=== PATIENT | male | born 1975 | race Caucasian/White ===

== ENCOUNTER → 2021-06-19 17:01 | Outpatient (CLI) | payer OTHER, SELFPAY ==
[2021-06-19 17:07] LABS: Bacteria 0 SEEN /hpf (None Seen); Red Blood Cells-Urine 0 SEEN /hpf (0-5); Squamous Epithelial Cells - UA 0 SEEN /hpf (0-5)
--- NOTE | 2021-06-19 17:07 | RAD_ITS ---
STUDY: X-RAY - ABDOMEN/PELVIS REASON FOR EXAM: Male, 45 years old. ABD PAIN TECHNIQUE: 3 AP views COMPARISON: None. FINDINGS: Normal visualized lung bases. There is a moderate amount of colonic fecal material. There is no demonstrated free abdominal air. The visualized liver, spleen and kidneys are grossly normal in size and morphology. Normal soft tissue structures. Normal visualized osseous structures. RAD/Abd Inc Decub and/or Erect IMPRESSION: No acute findings, moderate retained stool Electronically Signed: Darien New MD at 17:53 EST , Service support ,
[2021-06-19 17:45] LABS: Absolute Lymphocyte Count 4.43 X10^3/uL (0.83-4.51); Absolute Neutrophil Count 7.1 X10^3/uL (2.0-7.7); Basophil# 0.09 X10^3/uL; Basophil% 0.7 % (0-1); Eosinophil# 0.35 X10^3/uL; Eosinophils% 2.7 % (0-5); Hematocrit 40.1 % (40-54); Hemoglobin 14.2 g/dL (13.0-16.5); Lymphocyte # 4.43 X10^3/ul (0.83-4.51); Lymphocyte % 33.9 % (19-41); Mean Corp Hgb Conc 35.4 g/dL (32-36); Mean Corpuscular Hgb 31.8 pg (27.0-32.0); Mean Corpuscular Volume 89.9 fL (80-94); Mean Platelet Vol. 10.8 fl (6.2-12.0); Monocyte# 0.96 X10^3/uL; Monocyte% 7.3 % (0-10); NRBC Flagged by Analyzer 0 % (0-5); Neutrophil % 54.3 % (47-70); Platelet Count 288 K/mm3 (150-450); RBC Distribution Width CV 12.1 % (11.6-14.6); Red Blood Count 4.46 M/mm3 (4.6-6.2); White Blood Count 13.1 K/mm3 (4.4-11.0)
[2021-06-19 17:47] LABS: Color, Urine Yellow (Yellow); Glucose, Dipstick Normal (Normal); Ketone-Dipstick 5 mg/dl (Negative); Leukocyte Esterase-Dipstick 25 /ul (Negative); Nitrite-Dipstick Negative (Negative); Occult Blood-Urine 10 /ul (Negative); Protein-Dipstick 30 mg/dl (Negative); Urine Bilirubin Dipstick Negative (Negative); Urine Clarity Clear (Clear); Urine Urobilinogen Normal (Normal)
[2021-06-19 18:14] LABS: ALB/GLOB Ratio 1.1 RATIO (0.9-2.4); AST(SGOT) 18 U/L (15-37); Alanine Aminotransfer ALT/SGPT 43 U/L (16-61); Alkaline Phosphatase 106 U/L (45-117); Anion Gap 7 (5-15); BUN 20 mg/dL (7-18); BUN/Creat Ratio 22.7 RATIO (10-20); Calcium,Total 9.2 mg/dL (8.5-10.1); Chloride 103 mmol/L (98-107); Creatinine, Serum 0.88 mg/dL (0.70-1.30); EST Glomerular Filtration Rate 100 mL/min (>60); Est Glom Filt Rate - Afr Amer 121 mL/min (>60); Globulin 3.6 g/dL (2.2-4.2); Glucose 96 mg/dL (74-106); Potassium 4.3 mmol/L (3.5-5.1); Protein, Total 7.6 g/dL (6.4-8.2); Sodium Level 137 mmol/L (136-145)
[2021-06-19 18:19] LABS: Mucous, Urine 2+ /hpf (<or=2+)
[2021-06-19 18:20] LABS: White Blood Cells 0-5 SEEN /hpf (0-5)
== END ==
PROVIDERS: PCP Family Medicine; Referring Provider Family Medicine; Visit Provider Family Medicine
DX: R10.9 Unspecified abdominal pain (principal)
CPT/HCPCS: 36415; 74019; 80053; 81001; 85025

== ENCOUNTER → 2023-08-07 | Outpatient (CLI) | payer OTHER, SELFPAY ==
--- OUTSIDE RECORDS SUMMARY | 2023-08-07 08:59 | XMS RPT_ITS | CCD ---
Author Name Unknown Address [address] [place] [address] Organization [facility] Results Test Name Value Interpretation Reference Range Facil ity Progress note 05-19-2021 Note Date & Type Note Facility 05-19-2021 Note HNO ID: [id number] Author: Quincy Arriaga MD Service: ? Author Type: Physician Type: Progress Notes Filed: 05/19/2021 4:14 PM Note Text: Chief Complaint Patient presents with: Pain: x 1 week, intermittent, worse when sitting for a long time; pain is under L breast and radiates to L flank HPI Deann Tanner is a 45 year old male who presents here today for Above Complaints. Patient states that about a week ago he developed gradual onset pain in his LUQ abdomen. Described as intermittent ache, up to 6/10, radiating to his left mid back. Exacerbated with sitting, leaning toward his left, or hard cough.Treating with ibuprofen which helps temporarily. Gradually worsening. Admits to getting over a cold about 2 weeks ago with cough. Denies fall/injury, rash, erythema, bruising, swelling, nausea, vomiting, diarrhea, constipation, hematochezia, melena, fever/chills. Past medical history, appointments, medications, allergies reviewed. Previous Medical History PAST MEDICAL HISTORY Diagnosis Date - Alcohol abuse, in remission 02/14/2016 sober since 02/14/2016 - Depression - Hyperlipidemia - Hypertension - Prediabetes - Tobacco use disorder Previous Surgical History PAST SURGICAL HISTORY Procedure Laterality Date - EXTENSIVE ANKLE/HEEL SURGERY 2009 - TONSILLECTOMY AND ADENOIDECTOMY HX Family History FAMILY HISTORY Problem Relation Age of Onset - Ischemic Heart Disease Mother - Hypertension Mother - Seizures Paternal Grandfather - Emphysema Father - other (lupus) Sister - No Known Problems Maternal Grandmother - No Known Problems Maternal Grandfather - No Known Problems Paternal Grandmother - Hypertension Sister Patient Allergies ALLERGIES No Known Allergies Current Medications Current Outpatient Medications on File Prior to Visit Medication Sig - simvastatin (ZOCOR) 20 mg tablet Take 1 tablet by mouth once daily. - metoprolol succinate ER (TOPROL XL) 50 mg 24 hr tablet Take 1 tablet by mouth once daily. - lisinopril (ZESTRIL, PRINIVIL) 20 mg tablet Take 1 tablet by mouth once daily. No current facility-administered medications on file prior to visit. Social History Social History Tobacco Use - Smoking status: Current Every Day Smoker Packs/day: 0.50 Years: 25.00 Pack years: 12.50 - Smokeless tobacco: Current User - Tobacco comment: chewing 2 cans per week Vaping Use - Vaping Use: Former Substance Use Topics - Alcohol use: Not Currently Alcohol/week: 5.0 standard drinks Types: 6 Cans of beer per week Comment: three years sober - Drug use: Not Currently Review of Symptoms REVIEW OF SYSTEMS See HPI EXAM: BP 128/100 Pulse 88 Temp 36.9 ?C (98.5 ?F) Wt 94.8 kg (209 lb) SpO2 96% BMI 33.73 kg/m? General Appearance: Well appearing, alert, in no acute distress, well-hydrated, well nourished.. Skin: Skin color, texture, turgor normal, no suspicious rashes or lesions. Back:no pain to palpation of vertebrae, good flexion and extension, good range of motion, no muscle tenderness Lungs: Lungs clear to auscultation. No wheezing, rhonchi, rales.. Heart: RRR without murmur, gallop, or rubs. No ectopy. Abdomen: Normal abdominal exam, Abdomen soft, non-tender. Bowel sounds normal. No masses, organomegaly. Health Maintenance List BP CONTROLLED (<130/80) Never done INFLUENZA(1) Never done COVID-19 VACCINE(1) due on 02/13/2022 ANNUAL PCP TEAM CHRONIC DISEASE VISIT due on 02/13/2022 DEPRESSION SCREENING due on 02/13/2022 LIPID SCREEN due on 08/08/2025 DTAP,TDAP,TD(2 - Td or Tdap) due on 08/15/2030 HEPATITIS C SCREENING Completed HIV SCREENING Completed ONE PNEUMOVAX PRIOR TO AGE 65 Addressed MENINGOCOCCAL CONJUGATE Aged Out ASSESSMENT/PLAN: 1. LUQ abdominal pain - ICD9: 789.02, ICD10: R10.12 (primary diagnosis) Suspect this is radicular pain from his back. Non tender in his abdomen and back today on exam. Discussed ice/heat, NSAIDs, home exercises for pain. Red flags for re-assessment reviewed with patient in detail. 2. Acute left-sided thoracic back pain - ICD9: 724.1, ICD10: M54.6 - Ice for localized tenderness - Warm moist heat for 20 min three times a day - NSAIDS- see orders - Patient given instructions use of medications as ordered, intermittent rest, back care exercise program, weight loss, improved posture, proper lifting techniques and intermittent use of heat Quincy Arriaga MD [facility] Progress note 02-13-2021 Note Date & Type Note Facility 02-13-2021 Note HNO ID: [id number] Author: Quincy Arriaga MD Service: ? Author Type: Physician Type: Progress Notes Filed: 02/14/2021 9:23 AM Note Text: Chief Complaint Patient presents with: 6 Month Exam HPI Deann Tanner is a 45 year old male who presents here today for Hypertension. At present Patient is experiencing symptoms of High blood pressure including anxiousness and mild pressure in the frontal region. Complains of ear pain, which patient states represents high blood pressure to him Patient states that blood pressure is pretty good, not recording it at home presently. He has never recorded blood pressure readings at home Patient says he can feel when blood pressure is high- feels anxiety, and is sometimes hard to describe. Currently experiencing no headache. Patient complains of blurry vision-eyes are Bad needs new glasses. Has not had COVID -19 vaccine, and refuses. Risks and benefits discussed. Patient states he has taken medicatoins with no side effects. Patient states he is NOT diabetic. Patient states Dr. Arriaga considered him pre-diabetic. Denies excess thirst, hunger, or urination. Diet: Patient states that he eats out a lot, approximates 5x per week while working. 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 Last week he was active cutting trees and hauling away. This week not a lot of physical work. No feelings of anxiety and depression. No thoughts of harming himself or others. Feels that anxiety and depression are well managed without medication Past medical history, appointments, medications, allergies reviewed. Previous Medical History PAST MEDICAL HISTORY Diagnosis Date - Alcohol abuse, in remission 02/14/2016 sober since 02/14/2016 - Depression - Hyperlipidemia - Hypertension - Prediabetes - Tobacco use disorder Previous Surgical History PAST SURGICAL HISTORY Procedure Laterality Date - EXTENSIVE ANKLE/HEEL SURGERY 2009 - TONSILLECTOMY AND ADENOIDECTOMY HX Family History FAMILY HISTORY Problem Relation Age of Onset - Ischemic Heart Disease Mother - Hypertension Mother - Seizures Paternal Grandfather - Emphysema Father - other (lupus) Sister - No Known Problems Maternal Grandmother - No Known Problems Maternal Grandfather - No Known Problems Paternal Grandmother - Hypertension Sister Patient Allergies ALLERGIES No Known Allergies Current Medications Current Outpatient Medications on File Prior to Visit Medication Sig - simvastatin (ZOCOR) 20 mg tablet Take 1 tablet by mouth once daily. - metoprolol succinate ER (TOPROL XL) 50 mg 24 hr tablet Take 1 tablet by mouth once daily. - lisinopril (ZESTRIL, PRINIVIL) 20 mg tablet Take 1 tablet by mouth once daily. No current facility-administered medications on file prior to visit. Social History Social History Tobacco Use - Smoking status: Current Every Day Smoker Packs/day: 0.50 Years: 25.00 Pack years: 12.50 - Smokeless tobacco: Current User - Tobacco comment: chewing 2 cans per week Vaping Use - Vaping Use: Former Substance Use Topics - Alcohol use: Not Currently Alcohol/week: 5.0 standard drinks Types: 6 Cans of beer per week Comment: three years sober - Drug use: Not Currently Smoking currenlty 4 or 5 cigarettes per day, previously a pack a day. No alcohol use, 5 years sober today. No illicit or recreational drugs 5 years sober today Review of Symptoms REVIEW OF SYSTEMS PAIN ASSESSMENT: Patient states ankle knee and back pain, attributes to old age, arthritits. Rib pain approximately 1x month. Aggrevated from sitting still and not moving enough GENERAL: No weight loss, malaise or fevers HEENT: Negative for frequent or significant headaches, No changes in hearing or vision-SEE HPI , no nose bleeds or other nasal problems. Patient experiences right ear pain, pain fullness once per week. NECK: Negative for lumps, goiter, pain and significant neck swelling RESPIRATORY: Negative for cough, hemoptysis, wheezing, dyspnea or shortness of breath CARDIOVASCULAR: Negative for chest pain, leg swelling, palpitations GI: No nausea, vomiting, or diarrhea. No heartburn or reflux symptoms : No history of dysuria, frequency or incontinence MUSCULOSKELETAL: Joint pain in both ankles and knees noticeable after a long day, denies back pain or muscle pain that is localized to mid back. SKIN: Negative for lesions, rash, and itching. Facial mole that turned bad a few days ago from agitation, started bleeding, washed and stopped bleeding on its on. PSYCH: Negative for sleep disturbance, mood disorder and recent psychosocial stressors HEMATOLOGY/LYMPHOLOGY: Negative for prolonged bleeding, bruising easily or swollen nodes ENDOCRINE: Negative for cold or heat intolerance, polyuria, and goiter. Patient experiences polyphagia approximately 2-3 times per week, depends on whats for dinner. (more content not included)... [facility] Progress note 08-31-2020 Note Date & Type Note Facility 08-31-2020 Note HNO ID: [id number] Author: Yulisa ([facility]) [employer] Service: ? Author Type: Nurse Practitioner Type: Progress Notes Filed: 08/31/2020 4:09 PM Note Text: Telemedicine Evaluation for COVID-19 Infection HIPAA secured video was used for evaluation of this patient. Location of patient: [facility] Deann Tanner is a 45 year old male who presents with 3 days of symptoms that are stable. Reports has had two COVID-19 tests. PCR on first day of symptoms which was negative. One today rapid which was negative. Symptoms include: Fever (?100.4F): No or Chills: Yes Cough: No Shortness of breath: No or Difficulty breathing: No Fatigue: Yes Muscle aches: Ye Headache: Yes New loss of smell or taste: No Sore throat: Yes Nasal congestion: Yes or Rhinorrhea: Yes Nausea: Yes or Vomiting: No Diarrhea: No OTC meds/remedies that patient has tried: NSAIDs. High risk category assessment Hypertension Exposures: Sick contacts? No Family or close contacts with confirmed/probable COVID-19 in last 14 days? No He reports that he has been smoking. He has a 12.50 pack-year smoking history. He uses smokeless tobacco. OBJECTIVE VIDEO EXAM (if available) GENERAL: Well appearing, alert, in no acute distress HEENT: No conjunctival injection, pupils equal PULMONARY: No coughing noted and No wheezing noted. Able to speak in full sentences without diffiuclty ASSESSMENT/PLAN 1. Encounter by telehealth for suspected COVID-19 - ICD9: V01.79, ICD10: Z20.822 (primary diagnosis) - Meets symptom-based criteria for testing and is high risk. - Patient scheduled for testing at the time of visit. - Instructed to isolate pending test results - Discussed symptom monitoring and supportive care - Red flag symptoms requiring follow up discussed - 2019 CORONAVIRUS 2. Flu-like symptoms - ICD9: 780.99, ICD10: R68.89 - offered flu testing for [facility], declined at this time Yulisa Schmid, IT SUPPORT TECHNICIAN.CHILD CAREGIVER This patient encounter involved the screening or treatment of novel coronavirus infection (COVID-19). Prescription instructions reviewed with patient as applicable. Patient advised if symptoms do not improve or if symptoms worsen sooner, to contact their primary care physician. Potential red flag symptoms discussed with the patient. Reviewed appropriate action plan to take if red flag symptoms occur. Patient agreeable to treatment plan. ' [facility] Progress note 08-29-2020 Note Date & Type Note Facility 08-29-2020 Note HNO ID: [id number] Author: Carlos Vazquez Service: ? Author Type: Nurse Practitioner Type: Progress Notes Filed: 09/01/2020 9:23 AM Note Text: Telemedicine Visit - Telephone visit Patient seen on telephone platform. Location of patient: [place] History of Present Illness Deann Tanner is a 45 year old year old male who presents for the past 1 day with symptoms that are:gradually worsening. Symptoms include: Positive for Fever, Chills/Sweats, Headache and Sore throat, Negative for Cough, SOB, METZ, Nasal congestion and Diarrhea Oral intake: as usual Tobacco use: yes Second hand smoke exposure: No Recent exposure to strep:No Sick contacts: none known Recent travel: no OTC meds/remedies that patient has tried: tylenol. PAST MEDICAL HISTORY Diagnosis Date - Depression - Hyperlipidemia - Hypertension PAST SURGICAL HISTORY Procedure Laterality Date - EXTENSIVE ANKLE/HEEL SURGERY 2009 - TONSILLECTOMY AND ADENOIDECTOMY HX FAMILY HISTORY Problem Relation Age of Onset - Ischemic Heart Disease Mother - Hypertension Mother - Seizures Paternal Grandfather - Emphysema Father - other (lupus) Sister - No Known Problems Maternal Grandmother - No Known Problems Maternal Grandfather - No Known Problems Paternal Grandmother - Hypertension Sister Social History Tobacco Use - Smoking status: Current Every Day Smoker Packs/day: 0.50 Years: 25.00 Pack years: 12.50 - Smokeless tobacco: Current User Substance Use Topics - Alcohol use: Not Currently Alcohol/week: 5.0 standard drinks Types: 6 Cans of beer per week Comment: three years sober - Drug use: Not Currently Current Outpatient Medications Medication Sig - simvastatin (ZOCOR) 20 mg tablet Take 1 tablet by mouth once daily. - metoprolol succinate ER (TOPROL XL) 50 mg 24 hr tablet Take 1 tablet by mouth once daily. - lisinopril (ZESTRIL, PRINIVIL) 20 mg tablet Take 1 tablet by mouth once daily. No current facility-administered medications for this visit. ALLERGIES No Known Allergies Video Exam : appears in no distress on phone, no respiratory distress noted during conversation. Centor Criteria - Age (2-14=+1, 15-44=0, >=45 -1): 0 - Tonsillar exudates: 0 unknown, phone exam. - Tender anterior cervical adenopathy: +1 - Fever by history (>38 or 100.4): +1 - Absence of cough: +1 0 points- probability of strep is 1-2.5% 1 point- probability of strep is 5-10% 2 points- probability of strep is 11-17% 3 points- probability of strep is 28-35% 4 points- probability of strep is 51-53% ASSESSMENT/PLAN: 1. Suspected COVID-19 virus infection - ICD9: V01.79, ICD10: Z20.822 (primary diagnosis) Discussed quarantine, social distancing otc medications discussed Push fluids -If you experience chest pain/shortness of breath go to ER - 2019 CORONAVIRUS 2. Sore throat - ICD9: 462, ICD10: J02.9 Strep negative Viral otc medication discussed. - STREP A MOLECULAR (POC) a -Tylenol (generic acetaminophen) 500 mg-2 tabs every 8 hrs. as needed for fever and aches -Sudafed (generic is fine), behind the counter, 2x30 mg tabs twice daily as needed for congestion -Mucinex (generic is fine) 1200 mg twice daily to help with cough and to thin out mucus -http://[email or web address].org/patient-re [email or web address]/. This link shares information about when antibiotics may help and when they may not. - Red flags discussed for need for in person care - All questions answered Carlos Vazquez APRN.CHILD CAREGIVER 20 minutes spent with patient discussing health concerns and plan of care. If you let us know who your primary care provider is, we will send them a notification of today?s visit through our electronic medical records system. Since not all providers have access to our notifications, we strongly encourage you to share the following record of today?s visit with your primary care provider at your next visit. This will help in providing you the best care. [facility] Progress note 08-15-2020 Note Date & Type Note Facility 08-15-2020 Note HNO ID: [id number] Author: Quincy Ramos) Bart Service: ? Author Type: Physician Type: Progress Notes Filed: 08/16/2020 9:32 AM Note Text: Chief Complaint Patient presents with: 6 Month Exam HPI Deann Tanner is a 45 year old male who presents here today for 6 month follow up. Without complaints today. Needs refills on medications. HTN: Mr. Tanner indicates that he is feeling well and denies any symptoms referable to elevated blood pressure. Specifically denies headache, chest pain, palpitations, dyspnea and peripheral edema. Patient denies any side effects of his medication(s) and is compliant with their regimen. He does not check BP's generally. Deann gets minimal exercise. He watches his diet for sodium, low fat and low cholesterol some of the time. Last 3 Encounter BP Readings: Date: BP: 08/15/2020 134/78 02/10/2020 116/73 08/14/2019 116/62 Depression in remission without medications. Denies feeling down/depressed/hopeless, loss of interest or pleasure, SI/HI. Due for hepatitis C and HIV screening. Past medical history, appointments, medications, allergies reviewed. Previous Medical History PAST MEDICAL HISTORY Diagnosis Date - Depression - Hyperlipidemia - Hypertension Previous Surgical History PAST SURGICAL HISTORY Procedure Laterality Date - EXTENSIVE ANKLE/HEEL SURGERY 2009 - TONSILLECTOMY AND ADENOIDECTOMY HX Family History FAMILY HISTORY Problem Relation Age of Onset - Ischemic Heart Disease Mother - Hypertension Mother - Seizures Paternal Grandfather - Emphysema Father - other (lupus) Sister - No Known Problems Maternal Grandmother - No Known Problems Maternal Grandfather - No Known Problems Paternal Grandmother - Hypertension Sister Patient Allergies ALLERGIES No Known Allergies Current Medications Current Outpatient Medications on File Prior to Visit Medication Sig - simvastatin (ZOCOR) 20 mg tablet Take 1 tablet by mouth once daily. - metoprolol succinate ER (TOPROL XL) 50 mg 24 hr tablet Take 1 tablet by mouth once daily. - lisinopril (ZESTRIL, PRINIVIL) 20 mg tablet Take 1 tablet by mouth once daily. No current facility-administered medications on file prior to visit. Social History Social History Tobacco Use - Smoking status: Current Every Day Smoker Packs/day: 0.50 Years: 25.00 Pack years: 12.50 - Smokeless tobacco: Current User Substance Use Topics - Alcohol use: Not Currently Alcohol/week: 5.0 standard drinks Types: 6 Cans of beer per week Comment: three years sober - Drug use: Not Currently Review of Symptoms REVIEW OF SYSTEMS GENERAL: No weight loss, malaise or fevers RESPIRATORY: Negative for cough, hemoptysis, wheezing, COPD, dyspnea or shortness of breath CARDIOVASCULAR: Negative for chest pain, leg swelling, hypertension, CHF or palpitations GI: No nausea, vomiting, or diarrhea SKIN: Negative for lesions, rash, and itching EXAM: BP 134/78 Pulse 92 Resp 16 Wt 94.3 kg (208 lb) SpO2 96% BMI 33.57 kg/m? General Appearance: Well appearing, alert, in no acute distress, well-hydrated, well nourished.. Skin: Skin color, texture, turgor normal, no suspicious rashes or lesions. Lungs: Lungs clear to auscultation. No wheezing, rhonchi, rales.. Heart: RRR without murmur, gallop, or rubs. No ectopy. Abdomen: Normal abdominal exam, Abdomen soft, non-tender. Bowel sounds normal. No masses, organomegaly. Extremities: No deformities, edema, skin discoloration, clubbing or cyanosis. Good capillary refill. . Health Maintenance List HEPATITIS C SCREENING due on 1995 HIV SCREENING due on 1995 DTAP,TDAP,TD(1 - Tdap) due on 1996 INFLUENZA(1) due on 01/11/2021 ANNUAL PCP TEAM CHRONIC DISEASE VISIT due on 02/09/2021 BP CONTROLLED (<130/80) due on 02/09/2021 LIPID SCREEN due on 08/08/2025 ONE PNEUMOVAX PRIOR TO AGE 65 Completed MENINGOCOCCAL CONJUGATE Completed Data reviewed Component Latest Ref Rng AND Units 08/08/2020 Glucose 74 - 99 mg/dL 110 (H) BUN 9 - 24 mg/dL 23 Creatinine 0.73 - 1.22 mg/dL 0.94 Sodium 136 - 144 mmol/L 142 Potassium 3.7 - 5.1 mmol/L 4.5 Chloride 97 - 105 mmol/L 103 CO2 22 - 30 mmol/L 27 Anion Gap 9 - 18 mmol/L 12 Calcium 8.5 - 10.2 mg/dL 9.9 eGFR- >60 eGFR-All Other Races . >60 Cholesterol, Total <200 mg/dL 188 Triglyceride <150 mg/dL 82 HDL Cholesterol >39 mg/dL 51 LDL Cholesterol <100 mg/dL 121 (H) Non HDL Cholesterol <130 mg/dL 137 (H) Fasting Time hrs 12 VLDL Cholesterol <30 mg/dL 16 TC:HDL Ratio <5.10 3.69 LDL:HDL Ratio <2.54 2.37 ASSESSMENT/PLAN: 1. Hypertension - ICD9: 401.9, ICD10: I10 (primary diagnosis) - good control - Continue current medication(s) - Encouraged dietary sodium restriction/DASH diet - Recommended regular aerobic exercise. - Reviewed risks of HTN and principles of treatment - Goal of BP <140/90 - METOPROLOL SUCCINATE ER 50 MG TABLET,EX (more content not included)... [facility] Summary Purpose Family History No Family History Records FoundNo Family History Records Found Advance Directives No Advanced Directives Records FoundNo Advanced Directives Records Found Additional Source Comments (unrecognized sect ion and content) No Status Records FoundNo Status Records Found INFORMATION SOURCE (unrecogn ized section and content) DATE CREATED AUTHOR AUTHOR'S ANCA ATION 08/11/2021 [facility] FOR RECORDS PERTAINING TO PATIENTS WHO ARE OR HAVE BEEN ENROLLED IN A CHEMICAL DEPENDENCY/SUBSTANCEABUSE PROGRAM, SOME INFORMATION MAY BE OMITTED. This clinical summary was aggregated from multiple sources. Caution should be exercised in using it in the provision of clinical care. This summary normalizes information from multiple sources, and as a consequence, information in this document may materially change the coding, format and clinical context of patient data. In addition, data may be omitted in some cases. CLINICAL DECISIONS SHOULD BE BASED ON THE PRIMARY CLINICAL RECORDS. [employer] [facility]. provides no warranty or guarantee of the accuracy or completeness of information in this document.
[2023-08-07 10:56] LABS: AST(SGOT) 10 U/L (15-37); Alanine Aminotransfer ALT/SGPT 21 U/L (16-61); Albumin, Serum 3.6 g/dL (3.2-5.0); Alkaline Phosphatase 116 U/L (45-117); Anion Gap 3 (5-15); BUN 21 mg/dL (7-18); BUN/Creat Ratio 25.4 RATIO (10-20); Calcium,Total 8.8 mg/dL (8.5-10.1); Chloride 108 mmol/L (98-107); Cholesterol 196 mg/dL (200); Creatinine, Serum 0.83 mg/dL (0.70-1.30); EST Glomerular Filtration Rate 106 mL/min (>60); Est Glom Filt Rate - Afr Amer 129 mL/min (>60); Globulin 3.6 g/dL (2.2-4.2); Glucose 132 mg/dL (74-106); High Density Lipoprotein 45 mg/dL; Potassium 4.2 mmol/L (3.5-5.1); Protein, Total 7.2 g/dL (6.4-8.2); Sodium Level 135 mmol/L (136-145); Triglycerides 174 mg/dL; Very Low Density Lipoprotein 35 mg/dL (5-40)
== END | disposition home or self-care (01) ==
LOC: LAB 08:35
PROVIDERS: PCP Family Medicine; Referring Provider Family Medicine; Visit Provider Family Medicine
DX: R73.01 Impaired fasting glucose (principal)
CPT/HCPCS: 36415; 80053; 80061

== ENCOUNTER 2024-03-09 02:07 | Emergency (ER) | payer OTHER, SELFPAY ==
[2024-03-09 02:08] VITALS: BP 187/111; PULSE 86; RESP 16; TEMP 36.5; O2SAT 96; BMI 34.7
--- NOTE | 2024-03-09 02:32 | CT_ITS ---
EXAM: CT Abdomen And Pelvis W/O Contrast Injection HISTORY: flank pain TECHNIQUE: Routine protocol CT abdomen and pelvis. IV Contrast: None.. Oral contrast: None. RADIATION DOSAGE (If Supplied By Facility): CTDIvol = ( 16.51 ) mGy, DLP = ( 808.60 ) mGycm Individualized dose optimization techniques were used for this CT. COMPARISON: None. LIMITATIONS: None. FINDINGS: LOWER CHEST: Included lung bases are clear. Coronary artery calcifications are noted. LIVER: Several small cysts. Other tiny low-attenuation structure is too small to characterize. GALLBLADDER AND BILIARY TREE: Grossly unremarkable. PANCREAS: Grossly unremarkable. SPLEEN: Grossly unremarkable. ADRENAL GLANDS: Grossly unremarkable. KIDNEYS AND URETERS: There is a 4 mm calculus in the distal left ureter proximal to the ureterovesical junction. The left ureter is dilated with mild left hydronephrosis and perinephric stranding. Several small calculi in both kidneys. No hydronephrosis on the right. PERITONEUM: No free air. No free fluid. BOWEL: Scattered diverticula throughout the colon. No bowel obstruction. APPENDIX: Visualized and unremarkable. No evidence of acute appendicitis. VESSELS: Abdominal aorta is normal caliber. REPRODUCTIVE ORGANS: Grossly unremarkable URINARY BLADDER: Minimally distended. ABDOMINAL WALL: Small bilateral inguinal hernias containing only fat, no bowel. BONES: No acute abnormalities. Bilateral pars defects at L5 with minimal grade 1 spondylolisthesis at L5-S1 and degenerative changes. CT/Abdomen/Pelvis without Cont IMPRESSION: Distal left ureteral calculus with mild left hydroureteronephrosis. Bilateral nephrolithiasis. Colonic diverticulosis without evidence of acute diverticulitis. Electronically Signed: Cheryl Alvarado MD at 4:26 EDT ,
[2024-03-09 02:39] LABS: Absolute Lymphocyte Count 4.96 X10^3/uL (0.83-4.51); Absolute Neutrophil Count 7.2 X10^3/uL (2.0-7.7); Basophil# 0.11 X10^3/uL; Basophil% 0.8 % (0-1); Eosinophil# 0.25 X10^3/uL; Eosinophils% 1.8 % (0-5); Hematocrit 42.2 % (40-54); Hemoglobin 14.2 g/dL (13.0-16.5); Lymphocyte # 4.96 X10^3/ul (0.83-4.51); Lymphocyte % 36.5 % (19-41); Mean Corp Hgb Conc 33.6 g/dL (32-36); Mean Corpuscular Hgb 30.9 pg (27.0-32.0); Mean Corpuscular Volume 91.7 fL (80-94); Mean Platelet Vol. 10.8 fl (6.2-12.0); Monocyte# 1.01 X10^3/uL; Monocyte% 7.4 % (0-10); NRBC Flagged by Analyzer 0 % (0-5); Neutrophil # 7.17 X10^3/uL (2.7-7.7); Neutrophil % 52.9 % (47-70); Platelet Count 290 K/mm3 (150-450); RBC Distribution Width CV 12.5 % (11.6-14.6); RBC Distribution Width SD 41.4 fl (35.1-43.9); White Blood Count 13.6 K/mm3 (4.4-11.0)
[2024-03-09] MEDS: 0.9% Normal Saline (1000mL) 1,000 ML 999 ML IV (02:41)
[2024-03-09] MEDS: Ketorolac 30 MG/ML Syringe IV (02:41)
[2024-03-09] MEDS: Ondansetron 4 MG/2 ML Vial IV (02:41)
[2024-03-09 02:46] LABS: Mucous, Urine 0 SEEN /hpf (<or=2+); Squamous Epithelial Cells - UA 0 SEEN /hpf (0-5); White Blood Cells 0 SEEN /hpf (0-5)
[2024-03-09 02:48] LABS: Color, Urine Yellow (Yellow); Glucose, Dipstick Normal (Normal); Ketone-Dipstick Negative (Negative); Leukocyte Esterase-Dipstick Negative /ul (Negative); Nitrite-Dipstick Negative (Negative); Occult Blood-Urine 250 /ul (Negative); Protein-Dipstick 30 mg/dl (Negative); Specific Gravity, Urine 1.025 (1.002-1.030); Urine Bilirubin Dipstick Negative (Negative); Urine Clarity Sl. Cloudy (Clear); Urine Urobilinogen Normal (Normal)
[2024-03-09 02:50] LABS: Anion Gap 6 (5-15); BUN 24 mg/dL (7-18); BUN/Creat Ratio 23.3 RATIO (10-20); Calcium,Total 9.4 mg/dL (8.5-10.1); Chloride 109 mmol/L (98-107); Creatinine, Serum 1.03 mg/dL (0.70-1.30); EST Glomerular Filtration Rate 82 mL/min (>60); Est Glom Filt Rate - Afr Amer 100 mL/min (>60); Estimated Creatinine Clearance 98.11 ml/min; Glucose 140 mg/dL (74-106); Potassium 4.3 mmol/L (3.5-5.1); Sodium Level 142 mmol/L (136-145)
[2024-03-09 02:59] LABS: Bacteria RARE /hpf (None Seen); Red Blood Cells-Urine 10-25 SEEN /hpf (0-5)
[2024-03-09] MEDS: Morphine 4 MG/ML Syringe IV (03:55)
--- NOTE | 2024-03-09 05:17 | EX.ED.DYSGE1 ---
HPI History of Present Illness Chief Complaint: Flank Pain Informant: patient Narrative Narrative: Patient is a 48-year-old male with past medical history of hypertension hyperlipidemia. He states that yesterday he noticed sharp pain in his left flank/low back region without trauma or excessive activity. He states he was able to go to bed but then the pain returned and woke him from sleep. He states it made him feel he had to have a bowel movement therefore he tried but was unsuccessful and the pain continued to worsen and therefore he comes in for evaluation. PFSH PFS Home Medications ?Medication ?Instructions ?Recorded ?Last Taken ?Type metoprolol tartrate 50 mg tablet 50 mg PO DAILY 04/19/13 10/29/13 History simvastatin 20 mg tablet 20 mg PO QHS 04/19/13 10/29/13 History lisinopril 40 mg tablet 20 mg PO DAILY 10/20/13 10/29/13 History ibuprofen 600 mg tablet 600 mg PO DAILY 12/21/15 Unknown History cephalexin 500 mg capsule 500 mg PO TID 7 days #21 caps 03/09/24 Unknown Rx ketorolac 10 mg tablet 10 mg PO 4X/DAY PRN pain 5 days 03/09/24 Unknown Rx #20 tabs ondansetron 4 mg disintegrating 4 mg PO TID PRN nausea and 03/09/24 Unknown Rx tablet vomiting #21 tabs oxycodone-acetaminophen 5 mg-325 1 tab PO Q6H PRN pain 5 days #20 03/09/24 Unknown Rx mg tablet (Percocet) tabs tamsulosin 0.4 mg capsule (Flomax) 0.4 mg PO DAILY 14 days #14 caps 03/09/24 Unknown Rx Allergy/AdvReac Type Severity Reaction Status Date / Time No Known Allergies Allergy Verified 03/09/24 02:08 Surgical History (Updated 03/09/24 @ 02:14 by Lavinia Vicente) History of ankle surgery History of tonsillectomy and adenoidectomy Social History Smoking Status: Current every day smoker tobacco type: cigarettes ROS ROS ED Constitutional Constitutional ED: Denies chills or fever(s) ENT ENT ED: Denies sore throat Cardiovascular Cardiovascular: Denies chest pain Respiratory/Chest Respiratory/Chest: Denies cough or dyspnea Gastrointestinal Gastrointestinal: Reports abdominal pain, constipation and nausea; Denies diarrhea or vomiting Genitourinary Genitourinary ED: Denies dysuria, hematuria or urinary frequency Musculoskeletal Musculoskeletal: Reports back pain; Denies myalgias Integumentary Denies rash Neurologic Neurologic: Denies headache(s) Hematologic/Lymphatic Hematologic/Lymphatic: Denies easy bleeding or easy bruising EXAM Physical Exam Const Vital Signs: 03/09/24 02:08 03/09/24 05:41 Temperature 97.7 F L 97.8 F Temperature Source Temporal Pulse Rate 86 69 Respiratory Rate 16 16 Blood Pressure 187/111 H 132/78 H Blood Pressure Mean 136 96 Pulse Ox 96 99 Positive well nourished, well developed and obese General Appearance ED: well developed; Negative for pallor Nutritional Appearance: obese HEENT Reports moist mucous membranes HEENT Narrative: No signs of infection noted in the posterior pharynx Eyes PERRL and EOMs intact bilaterally General Eye ED: Negative for scleral icterus Neck supple Resp normal respiratory effort and clear to auscultation bilaterally Cardio regular rate and regular rhythm Rate: other Other Details: Heart is regular rate and rhythm without murmurs rubs or gallops Radial and carotid pulses are equal and symmetric GI non-distended and no masses GI Narrative: Abdomen is soft and nondistended with normal active bowel sounds. There is mild pain on palpation in the left lateral abdomen diffusely without voluntary guarding or rigidity. No pulsatile mass or fluid wave Auscultation: normoactive bowel sounds Palpation: soft Back/Spine Back/Spine Narrative: Positive left CVA pain noted Extremity normal to inspection Neuro oriented x3, CN's II-XII intact bilaterally and no sensory deficits noted Sensorium / Orientation: alert Motor Exam: strength 5/5 throughout Psych mental status grossly normal Skin no rashes or lesions noted Skin Narrative: No overlying soft tissue changes to suggest trauma or infection General Skin Exam: Negative for jaundice or pallor MDM MDM MDM Narrative Medical decision making narrative: Patient arrived to the ER hypertensive otherwise with stable vital. He reported left-sided back/flank pain without trauma or excessive activity. He denied any loss of bowel or bladder control or IV drug use and therefore my concern for cauda equina or epidural abscess is low. There is concern for UTI versus pyelonephritis versus kidney stone. Secondary to this basic labs with urine sample and a noncontrast CT were obtained. Labs revealed leukocytosis without left shift. There is no signs of SUZY or significant electrolyte abnormality. Urine sample shows blood consistent with stone but no obvious signs of infection. CT scan confirmed a stone in the distal left UVJ region. After receiving IV fluids as well as Toradol and morphine patient had resolution of pain. Therefore at this time with improvement of pain no signs of SUZY or urosepsis there is no need keep the patient in the hospital and he can follow-up with urology on an outpatient basis. History & Record Review Discussion w/independent historian: Patient Lab Data Attestation: I reviewed the patient's lab results. Labs: Laboratory Results - last 24 hr 03/09/24 03/09/24 02:12 02:40 WBC 13.6 H RBC 4.60 Hgb 14.2 Hct 42.2 MCV 91.7 MCH 30.9 MCHC 33.6 RDW Std Deviation 41.4 RDW Coeff of Juan Carlos 12.5 Plt Count 290 MPV 10.8 Immature Gran % (Auto) 0.600 Neut % (Auto) 52.9 Lymph % (Auto) 36.5 [place] % (Auto) 7.4 Eos % (Auto) 1.8 Baso % (Auto) 0.8 Absolute Neuts (auto) 7.2 Absolute Lymphs (auto) 4.96 H Nucleated RBC % 0 Sodium 142 Potassium 4.3 Chloride 109 H Carbon Dioxide 27.0 Anion Gap 6 BUN 24 H Creatinine 1.03 Estim Creat Clear Calc 98.11 Est GFR (MDRD) Af Amer 100 Est GFR (MDRD) Non-Af 82 BUN/Creatinine Ratio 23.3 H Glucose 140 H Calcium 9.4 Urine Color Yellow Urine Clarity Sl. Cloudy Urine pH 5.0 Ur Specific [place] 1.025 Urine Protein 30 H Urine Glucose (UA) Normal Urine Ketones Negative Urine Occult Blood 250 H Urine Nitrite Negative Urine Bilirubin Negative Urine Urobilinogen Normal Ur Leukocyte Esterase Negative Urine RBC 10-25 SEEN Urine WBC 0 SEEN Ur Squamous Epith Cells 0 SEEN Urine Bacteria RARE Urine Mucus 0 SEEN Radiography Diagnostic Testing: Clinical Impression(s) from Imaging Studies Abdomen/Pelvis CT 03/09/24 02:32 IMPRESSION: Distal left ureteral calculus with mild left hydroureteronephrosis. Bilateral nephrolithiasis. Colonic diverticulosis without evidence of acute diverticulitis. Electronically Signed: Cheryl Alvarado MD at 4:26 EDT , Discharge Plan Triage Chief Complaint: Flank Pain Other Complaint: Constipation ED Provider: Francisco Sanchez Dx/Rx/DC Orders Clinical Impression: Kidney stone on left side, Renal colic, Hypertension, Hyperlipidemia Instructions: ED Kidney Stone with Pain Prescriptions: New ketorolac 10 mg tablet 10 mg PO 4X/DAY PRN (Reason: pain) 5 Days Qty: 20 0RF cephalexin 500 mg capsule 500 mg PO TID 7 Days Qty: 21 0RF ondansetron 4 mg tablet,disintegrating 4 mg PO TID PRN (Reason: nausea and vomiting) Qty: 21 0RF tamsulosin [Flomax] 0.4 mg capsule 0.4 mg PO DAILY 14 Days Qty: 14 0RF oxycodone-acetaminophen [Percocet] 5-325 mg tablet 1 tab PO Q6H PRN (Reason: pain) 5 Days Qty: 20 0RF No Action simvastatin 20 MG tablet 20 mg PO QHS Patient Comments: PT NOT TAKING FOR PAST WEEK metoprolol tartrate 50 MG tablet 50 mg PO DAILY Patient Comments: PT NOT TAKING FOR THE PAST WEEK lisinopril 40 MG tablet 20 mg PO DAILY Patient Comments: PT NOT TAKING FOR PAST WEEK ibuprofen 600 MG tablet 600 mg PO DAILY Stand Alone Forms: ED Work / School Excuse Primary Care Provider: Quincy Begum Referrals: Quincy Begum MD [Primary Care Provider] - Dong Mendoza MD [Med Staff - Active Staff] - Activity Restrictions/Additional Instructions: Keep yourself well-hydrated and stay active to help pass your kidney stone. Take the medication as prescribed to control symptoms and follow-up with urology to discuss need for stent placement if you do not pass the stone on your own. If you develop a fever over 100.4 or have intractable pain or any further concerns please return to the hospital for repeat evaluation Print Language: [place] Disposition Disposition: Home, Self Care Discharge Date/Time: 03/09/24 05:43
[2024-03-09 05:41] VITALS: BP 132/78; PULSE 69; RESP 16; TEMP 36.6; O2SAT 99
== END 2024-03-09 05:43 | disposition home or self-care (01) ==
PROVIDERS: Emergency Provider Emergency Medicine; PCP Family Medicine; Visit Provider Emergency Medicine
DX: N13.2 Hydronephrosis with renal and ureteral calculous obstruction (principal); I10 Essential (primary) hypertension; E78.5 Hyperlipidemia, unspecified; E66.9 Obesity, unspecified; F17.210 Nicotine dependence, cigarettes, uncomplicated; Z68.34 Body mass index [BMI] 34.0-34.9, adult; Z79.899 Other long term (current) drug therapy
CPT/HCPCS: 74176; 80048; 81001; 85025; 96361; 96374; 96375; 99284; J7030; A4216; J2405

== ENCOUNTER 2025-07-01 20:13 | Emergency (ER) | payer OTHER, SELFPAY ==
[2025-07-01 20:15] VITALS: BP 0/0; PULSE 0; RESP 0; TEMP 35; O2SAT 0
--- OUTSIDE RECORDS SUMMARY | 2025-07-01 20:28 | XMS RPT_ITS | CCD ---
Author Organization [facility] Inform ion Partnership [facility] Care Team Providers Care Hotel [employer] Motel Receptionist Name Role Phone Pérez Begum MD Primary Care Provider Pérez Begum Primary Care Unavailable Pérez Begum Attending Unavailable Pérez Begum Referring Unavailable Francisco Sanchez Attending Unavailable Pérez Begum Primary Care Unavailable Medications Current Medications Medication Drug Class(es) Dates Sig (Normalized) Sig (Original) ibuprofen 600 mg oral tablet (1 source) Nonsteroidal Anti-inflammatory Drug Start: 12-21-2015 take 600 mg by mouth once daily Ibuprofen Active 600 MG PO DAILY December 20, 2015 11:00pm lisinopril 20 mg oral tablet (2 sources) Angiotensin Converting Enzyme Inhibitor Start: 03-22-2021 take 1 tablet by mouth once daily lisinopril (ZESTRIL, PRINIVIL) 20 mg tablet Indications: Hypertension Take 1 tablet by mouth once daily. 30 tablet 5 03/22/2021 Active Start: 10-20-2013 take 20 mg by mouth once daily Lisinopril Active 20 MG PO DAILY October 19, 2013 11:00pm 24 hr metoprolol succinate 50 mg extended release oral tablet (2 sources) beta-Adrenergic Marianela Start: 03-22-2021 take 1 tablet by mouth once daily metoprolol succinate ER (TOPROL XL) 50 mg 24 hr tablet Indications: Hypertension Take 1 tablet by mouth once daily. 30 tablet 5 03/22/2021 Active Start: 04-19-2013 take 50 mg by mouth once daily Metoprolol Tartrate Active 50 MG PO DAILY April 18, 2013 11:00pm naproxen 500 mg oral tablet (1 source) Nonsteroidal Anti-inflammatory Drug Start: 05-19-2021 take 1 tablet by mouth every twelve hours as needed naproxen (NAPROSYN) 500 mg tablet Take 1 tablet by mouth twice daily as needed for pain. Take with food. 60 tablet 0 05/19/2021 Active simvastatin 20 mg oral tablet (2 sources) HMG-CoA Reductase Inhibitor Start: 04-19-2013 take 1 tablet by mouth once daily simvastatin (ZOCOR) 20 mg tablet Indications: Hyperlipidemia Take 1 tablet by mouth once daily. 30 tablet 5 03/22/2021 Active Completed/Discontinued Medications Medication Drug Class(es) Dates Sig (Normalized) Sig (Original) cephalexin 500 mg oral capsule (1 source) Cephalosporin Antibacterial Start: 04-19-2013 End: 07-28-2013 take 500 mg by mouth every six hours Cephalexin Discontinued 500 MG PO EVERY 6 HOURS April 18, 2013 11:00pm July 28, 2013 6:24pm FLUoxetine 20 mg oral capsule (1 source) Serotonin Reuptake Inhibitor Start: 10-07-2013 End: 10-07-2013 take 50 mg by mouth twice daily Fluoxetine Discontinued 50 MG PO TWICE A DAY October 06, 2013 11:00pm October 07, 2013 5:02pm Problems Active Problems Problem Classification Problem Date Documented Da te Episodic/Chronic Abdominal pain (1 source) Unspecified abdominal pain; Translations: [Unspecified abdominal pain] Onset: 04-01-2024 Episodic Alcohol-related disorders (1 source) Alcohol abuse; Translations: [Alcohol abuse, uncomplicated] 06-30-2015 Chronic Disorders of lipid metabolism (1 source) Hyperlipidemia; Translations: [Hyperlipidemia, unspecified] 06-30-2015 Chronic Essential hypertension (1 source) Hypertensive disorder; Translations: [Essential (primary) hypertension] 06-30-2015 Chronic Residual codes; unclassified (1 source) History of violent behavior toward others; Translations: [Personal history of other specified conditions] 06-30-2015 Episodic Substance-related disorders (2 sources) Episodic drug abuse; Translations: [Other psychoactive substance abuse, uncomplicated] 06-30-2015 Chronic Unclassified (1 source) Increased frequency of urination; Translations: [Frequency] Onset: 03-01-2016 03-01-2016 Past or Other Problems Problem Classification Problem Date Documented Date Episodic/Chronic Diabetes mellitus without complication (1 source) Impaired fasting glucose; Translations: [Impaired fasting glucose] Onset: 08-12-2023 Episodic Genitourinary symptoms and ill-defined conditions (2 sources) Lower urinary tract symptoms; Translations: [Unspecified symptoms and signs involving the genitourinary system] Onset: 03-01-2016 03-01-2016 Episodic Mood disorders (1 source) Depressive disorder; Translations: [Depression] Resolved: 08-14-2019 08-14-2019 Chronic Results Test Name Value Interpretation Reference Range Facility Abdomen/Pelvis without Conto n 03-09-2024 Abdomen/Pelvis without Cont [facility] Services [address] [place], [place] [address] Abdomen/Pelvis without Cont MR#: [id number] Acct: [id number] Name: DEANN TANNER Rep #: [id number] : 1975 M 48 From: Cheryl Smith PCP: Dr. Pérez Begum MD Status: REG ER Study: Abdomen/Pelvis without Cont Date of Exam: 02/13 01/05 Exam# [id number] Ordering Dr: Francisco Sanchez DO [id number] EXAM: CT Abdomen And Pelvis W/O Contrast Injection HISTORY: flank pain TECHNIQUE: Routine protocol CT abdomen and pelvis. IV Contrast: None.. Oral contrast: None. RADIATION DOSAGE (If Supplied By Facility): CTDIvol = ( 16.51 ) mGy, DLP = ( 808.60 ) mGycm Individualized dose optimization techniques were used for this CT. COMPARISON: None. LIMITATIONS: None. __ FINDINGS: LOWER CHEST: Included lung bases are clear. Coronary artery calcifications are noted. LIVER: Several small cysts. Other tiny low-attenuation structure is too small to characterize. GALLBLADDER AND BILIARY TREE: Grossly unremarkable. PANCREAS: Grossly unremarkable. SPLEEN: Grossly unremarkable. ADRENAL GLANDS: Grossly unremarkable. KIDNEYS AND URETERS: There is a 4 mm calculus in the distal left ureter proximal to the ureterovesical junction. The left ureter is dilated with mild left hydronephrosis and perinephric stranding. Several small calculi in both kidneys. No hydronephrosis on the right. PERITONEUM: No free air. No free fluid. BOWEL: Scattered diverticula throughout the colon. No bowel obstruction. APPENDIX: Visualized and unremarkable. No evidence of acute appendicitis. VESSELS: Abdominal aorta is normal caliber. REPRODUCTIVE ORGANS: Grossly unremarkable URINARY BLADDER: Minimally distended. ABDOMINAL WALL: Small bilateral inguinal hernias containing only fat, no bowel. BONES: No acute abnormalities. Bilateral pars defects at L5 with minimal grade 1 spondylolisthesis at L5-S1 and degenerative changes. CT/Abdomen/Pelvis without Cont IMPRESSION: Distal left ureteral calculus with mild left hydroureteronephrosis . Bilateral nephrolithiasis. Colonic diverticulosis without evidence of acute diverticulitis. Electronically Signed: Cheryl Alvarado MD at 4:26 EDT , CC: Dr. Pérez Begum MD; Francisco Sanhcez DO Barber Shop Operator: Signed Normal [facility] Basic Metabolic Profile (BMP )on 03-09-2024 BUN/CRE 23.3 RATIO High 10-20 [facility] Comment on above: Performed By: #### L 500.2500, L100.0100 #### [facility] Laboratory [address] [place], [address] CA,Total 9.4 mg/dL Normal 8.5-10.1 [facility] Comment on above: Performed By: #### L 500.2500, L100.0100 #### [facility] Laboratory [address] [place], [address] Chloride [Moles/Vol] 109 mmol/L High 98-107 [facility] Comment on above: Performed By: #### L 500.2500, L100.0100 #### [facility] Laboratory [address] [place], [address] CO2 [Moles/Vol] 27.0 mmol/L Normal 21.0-32.0 [facility] Comment on above: Performed By: #### L 500.2500, L100.0100 #### [facility] Laboratory [address] [place], [address] Creatinine [Mass/Vol] 1.03 mg/dL Normal 0.70-1.30 [facility] Comment on above: Result Comment: The validity of the calculated GFR GFRAA in patients over 70 years has not been determined. Clinical correlation is essential. Performed By: #### L 500.2500, L100.0100 #### [facility] Laboratory [address] [place], [address] ECRCL 98.11 ml/min Normal [facility] Comment on above: Performed By: #### L 500.2500, L100.0100 #### [facility] Laboratory [address] [place], [address] EST GFR - AA 100 mL/min Normal >60 [facility] Comment on above: Result Comment: Afri can Grenadian GFR Calc Performed By: #### L 500.2500, L100.0100 #### [facility] Laboratory [address] [place], [address] GAP 6 Normal 5-15 [facility] Comment on above: Performed By: #### L 500.2500, L100.0100 #### [facility] Laboratory [address] [place], [address] GFR/1.73 sq M.predicted among non-blacks MDRD (S/P/Bld) [Vol rate/Area] 82 mL/min/{1.73_m2} Normal >60 [facility] Comment on above: Result Comment: Non- GFR Calc Performed By: #### L 500.2500, L100.0100 #### [facility] Laboratory [address] [place], [address] Glucose [Mass/Vol] 140 mg/dL High 74-106 [facility] Comment on above: Result Comment: Fast ing Glucose result greater than or equal to 126 mg/dL suggests DIABETES MELLITUS per A.D.A. criteria. Performed By: #### L 500.2500, L100.0100 #### [facility] Laboratory [address] [place], [address] Potassium [Moles/Vol] 4.3 mmol/L Normal 3.5-5.1 [facility] Comment on above: Performed By: #### L 500.2500, L100.0100 #### [facility] Laboratory [address] [place], [address] Sodium [Moles/Vol] 142 mmol/L Normal 136-145 [facility] Comment on above: Performed By: #### L 500.2500, L100.0100 #### [facility] Laboratory [address] [place], [address] Urea nitrogen [Mass/Vol] 24 mg/dL High 7-18 [facility] Comment on above: Performed By: #### L 500.2500, L100.0100 #### [facility] Laboratory [address] [place], [address] CBC W/Diff, Automatedon 08-2 -2023 Absolute Lymph 4.96 X10 3/uL High 0.83-4.51 [facility] Comment on above: Performed By: #### L 500.2500, L100.0100 #### [facility] Laboratory [address] [place], [address] Absolute Neut 7.2 X10 3/uL Normal 2.0-7.7 [facility] Comment on above: Performed By: #### L 500.2500, L100.0100 #### [facility] Laboratory [address] [place], [address] Basophils/100 WBC (Bld) 0.8 % Normal 0-1 [facility] Comment on above: Performed By: #### L 500.2500, L100.0100 #### [facility] Laboratory [address] [place], [address] Eosinophils/100 WBC (Bld) 1.8 % Normal 0-5 [facility] Comment on above: Performed By: #### L 500.2500, L100.0100 #### [facility] Laboratory [address] [place], [address] Erythrocyte distribution width (RBC) [Ratio] 12.5 % Normal 11.6-14.6 [facility] Comment on above: Performed By: #### L 500.2500, L100.0100 #### [facility] Laboratory [address] [place], [address] Hematocrit (Bld) [Volume fraction] 42.2 % Normal 40-54 [facility] Comment on above: Performed By: #### L 500.2500, L100.0100 #### [facility] Laboratory [address] [place], [address] Hemoglobin (Bld) [Mass/Vol] 14.2 g/dL Normal 13.0-16.5 [facility] Comment on above: Performed By: #### L 500.2500, L100.0100 #### [facility] Laboratory [address] [place], [address] IG% 0.600 Normal 0.0-0.9 [facility] Comment on above: Result Comment: IG% - Immature Granulocytes (promyelocytes, myelocytes and metamyelocytes) > 1% indicates that a LEFT SHIFT is Present. Performed By: #### L 500.2500, L100.0100 #### [facility] Laboratory [address] [place], [address] Lymphocytes/100 WBC (Bld) 36.5 % Normal 19-41 [facility] Comment on above: Performed By: #### L 500.2500, L100.0100 #### [facility] Laboratory [address] [place], [address] MCH (RBC) [Entitic mass] 30.9 pg Normal 27.0-32.0 [facility] Comment on above: Performed By: #### L 500.2500, L100.0100 #### [facility] Laboratory [address] [place], [address] MCHC (RBC) [Mass/Vol] 33.6 g/dL Normal 32-36 [facility] Comment on above: Performed By: #### L 500.2500, L100.0100 #### [facility] Laboratory [address] [place], [address] MCV (RBC) [Entitic vol] 91.7 fL Normal 80-94 [facility] Comment on above: Performed By: #### L 500.2500, L100.0100 #### [facility] Laboratory [address] [place], [address] Monocytes/100 WBC (Bld) 7.4 % Normal 0-10 [facility] Comment on above: Performed By: #### L 500.2500, L100.0100 #### [facility] Laboratory [address] [place], [address] Neutrophils/100 WBC (Bld) 52.9 % Normal 47-70 [facility] Comment on above: Performed By: #### L 500.2500, L100.0100 #### [facility] Laboratory [address] [place], [address] Nucleated RBC (Bld) [#/Vol] 0 10*3/uL Normal 0-5 [facility] Comment on above: Performed By: #### L 500.2500, L100.0100 #### [facility] Laboratory [address] [place], [address] Platelet mean volume (Bld) [Entitic vol] 10.8 fL Normal 6.2-12.0 [facility] Comment on above: Performed By: #### L 500.2500, L100.0100 #### [facility] Laboratory [address] [place], [address] Platelets (Bld) [#/Vol] 290 10*3/uL Normal 150-450 [facility] Comment on above: Performed By: #### L 500.2500, L100.0100 #### [facility] Laboratory [address] [place], [address] RBC (Bld) [#/Vol] 4.60 10*6/uL Normal 4.6-6.2 [facility] Comment on above: Performed By: #### L 500.2500, L100.0100 #### [facility] Laboratory [address] [place], [address] RDW SD 41.4 fl Normal 35.1-43.9 [facility] Comment on above: Performed By: #### L 500.2500, L100.0100 #### [facility] Laboratory [address] [place], [address] WBC (Bld) [#/Vol] 13.6 10*3/uL High 4.4-11.0 [facility] Comment on above: Performed By: #### L 500.2500, L100.0100 #### [facility] Laboratory [address] [place], [address] Emergency Department Summary on 03-09-2024 Emergency Department Summary [facility] Medical Records Department [address] [address] Emergency Department Summary 03/09/24 MR#: [id number] Acct: [id number] Name: DEANN TANNER Rep #: [id number] : 1975 48 From: Francisco Sanchez DO PCP: Dr. Pérez Begum MD Status:DEP ER Location: ED HPI History of Present Illness Chief Complaint: Flank Pain Informant: patient Narrative Narrative: Patient is a 48-year-old male with past medical history of hypertension hyperlipidemia. He states that yesterday he noticed sharp pain in his left flank/low back region without trauma or excessive activity. He states he was able to go to bed but then the pain returned and woke him from sleep. He states it made him feel he had to have a bowel movement therefore he tried but was unsuccessful and the pain continued to worsen and therefore he comes in for evaluation. PFSH [facility] Home Medications ???Medication ???Instructions ???Recorded ???Last Taken ???Type metoprolol tartrate 50 mg tablet 50 mg PO DAILY 04/19/13 10/29/13 History simvastatin 20 mg tablet 20 mg PO QHS 04/19/13 10/29/13 History lisinopril 40 mg tablet 20 mg PO DAILY 10/20/13 10/29/13 History ibuprofen 600 mg tablet 600 mg PO DAILY 12/21/15 Unknown History cephalexin 500 mg capsule 500 mg PO TID 7 days #21 caps 03/09/24 Unknown Rx ketorolac 10 mg tablet 10 mg PO 4X/DAY PRN pain 5 days 03/09/24 Unknown Rx #20 tabs ondansetron 4 mg disintegrating 4 mg PO TID PRN nausea and 03/09/24 Unknown Rx tablet vomiting #21 tabs oxycodone-acetaminoph en 5 mg-325 1 tab PO Q6H PRN pain 5 days #20 03/09/24 Unknown Rx mg tablet (Percocet) tabs tamsulosin 0.4 mg capsule (Flomax) 0.4 mg PO DAILY 14 days #14 caps 03/09/24 Unknown Rx Allergy/AdvReac Type Severity Reaction Status Date / Time No Known Allergies Allergy Verified 03/09/24 02:08 Surgical History (Updated 03/09/24 @ 02:14 by Lavinia Vicente) History of ankle surgery History of tonsillectomy and adenoidectomy Social History Smoking Status: Current every day smoker tobacco type: cigarettes ROS ROS ED Constitutional Constitutional ED: Denies chills or fever(s) ENT ENT ED: Denies sore throat Cardiovascular Cardiovascular: Denies chest pain Respiratory/Chest Respiratory/Chest: Denies cough or dyspnea Gastrointestinal Gastrointestinal: Reports abdominal pain, constipation and nausea; Denies diarrhea or vomiting Genitourinary Genitourinary ED: Denies dysuria, hematuria or urinary frequency Musculoskeletal Musculoskeletal: Reports back pain; Denies myalgias Integumentary Denies rash Neurologic Neurologic: Denies headache(s) Hematologic/Lymphatic Hematologic/Lymphatic : Denies easy bleeding or easy bruising EXAM Physical Exam Const Vital Signs: 03/09/24 02:08 03/09/24 05:41 Temperature 97.7 F L 97.8 F Temperature Source Temporal Pulse Rate 86 69 Respiratory Rate 16 16 Blood Pressure 187/111 H 132/78 H Blood Pressure Mean 136 96 Pulse Ox 96 99 Positive well nourished, well developed and obese General Appearance ED: well developed; Negative for pallor Nutritional Appearance: obese HEENT Reports moist mucous membranes HEENT Narrative: No signs of infection noted in the posterior pharynx Eyes PERRL and EOMs intact bilaterally General Eye ED: Negative for scleral icterus Neck supple Resp normal respiratory effort and clear to auscultation bilaterally Cardio regular rate and regular rhythm Rate: other Other Details: Heart is regular rate and rhythm without murmurs rubs or gallops Radial and carotid pulses are equal and symmetric GI non-distended and no masses GI Narrative: Abdomen is soft and nondistended with normal active bowel sounds. There is mild pain on palpation in the left lateral abdomen diffusely without voluntary guarding or rigidity. No pulsatile mass or fluid wave Auscultation: normoactive bowel sounds Palpation: soft Back/Spine Back/Spine Narrative: Positive left CVA pain noted Extremity normal to inspection Neuro oriented x3, CN's II-XII intact bilaterally and no sensory deficits noted Sensorium / Orientation: alert Motor Exam: strength 5/5 throughout Psych mental status grossly normal Skin no rashes or lesions noted Skin Narrative: No overlying soft tissue changes to suggest trauma or infection General Skin Exam: Negative for jaundice or pallor MDM MDM MDM Narrative Medical decision making narrative: Patient arrived to the ER hypertensive otherwise with stable vital. He reported left-sided back/flank pain without trauma or excessive activity. He denied any loss of bowel or bladder control or IV drug use and therefore my concern for cauda equina or epidural abscess is low. There is concern for UTI versus pyelonephritis versus kidney stone (more content not included)... Normal [facility] Urinalysis, Completeon 03-09 BACTERIA RARE Normal None Seen [facility] Comment on above: Order Comment: CLEAN CATCH Performed By: #### L 400.0001 #### [facility] Laboratory [address] [place], [address] RBC 10-25 SEEN Normal 0-5 [facility] Comment on above: Order Comment: CLEAN CATCH Performed By: #### L 400.0001 #### [facility] Laboratory [address] [place], [address] EPI,SQUAMOUS 0 SEEN Normal 0-5 [facility] Comment on above: Order Comment: CLEAN CATCH Performed By: #### L 400.0001 #### [facility] Laboratory [address] [place], [address] Mucus Ql (Urine sed) 0 SEEN Normal [facility] Comment on above: Order Comment: CLEAN CATCH Performed By: #### L 400.0001 #### [facility] Laboratory [address] [place], [address] WBC 0 SEEN Normal 0-5 [facility] Comment on above: Order Comment: CLEAN CATCH Performed By: #### L 400.0001 #### [facility] Laboratory [address] [place], [address] Basophil percentageOrdered B y: Olu Begum on 08-07-2023 Bilirubin [Mass/Vol] 0.40 mg/dL 0.20-1.00 [facility] Comment on above: For patients on eltr ombopag therapy, use of Dimension [place] TBIL is not recommended. Chloride [Moles/Vol] 108 mmol/L 98-107 [facility] Cholesterol [Mass/Vol] 196 mg/dL <200 [facility] Comment on above: <200 mg/dL Desirable 200-240 mg/dL Borderline >240 mg/dL High Risk Glucose [Mass/Vol] 132 mg/dL 74-106 [facility] Comment on above: Fasting Glucose resu lt greater than or equal to 126 mg/dL suggests DIABETES MELLITUS per A.D.A. criteria. Potassium [Moles/Vol] 4.2 mmol/L 3.5-5.1 [facility] Protein [Mass/Vol] 7.2 g/dL 6.4-8.2 [facility] Sodium [Moles/Vol] 135 mmol/L 136-145 [facility] Triglyceride [Mass/Vol] 174 mg/dL <199 [facility] Comment on above: The drugs N-Acetylcy steine and Metamizole may falsely depress this assay.Serum Triglycerides Reference Interval Normal <150 mg/dL Borderline high 150 - 199 mg/dL High 200 - 499 mg/dL Very High > or = 500 mg/dL Comprehensive Metabolic Prof ilon 08-07-2023 Albumin [Mass/Vol] 3.6 g/dL Normal 3.2-5.0 [facility] Comment on above: Order Comment: Order Date: 08/23/22 Order Info: [id number] - CMP Order Info: [id number] - LIPID Performed By: #### L 500.4050, L500.4100 #### [facility] Laboratory [address] [place], [address] Albumin/Globulin [Mass ratio] 1.0 {ratio} Normal 0.9-2.4 [facility] Comment on above: Order Comment: Order Date: 08/23/22 Order Info: [id number] - CMP Order Info: [id number] - LIPID Performed By: #### L 500.4050, L500.4100 #### [facility] Laboratory [address] [place], [address] ALK P 116 U/L Normal 45-117 [facility] Comment on above: Order Comment: Order Date: 08/23/22 Order Info: [id number] - CMP Order Info: [id number] - LIPID Performed By: #### L 500.4050, L500.4100 #### [facility] Laboratory [address] [place], [address] ALT [Catalytic activity/Vol] 21 U/L Normal 16-61 [facility] Comment on above: Order Comment: Order Date: 08/23/22 Order Info: [id number] - CMP Order Info: [id number] - LIPID Performed By: #### L 500.4050, L500.4100 #### [facility] Laboratory [address] [place], [address] AST [Catalytic activity/Vol] 10 U/L Low 15-37 [facility] Comment on above: Order Comment: Order Date: 08/23/22 Order Info: [id number] - CMP Order Info: [id number] - LIPID Performed By: #### L 500.4050, L500.4100 #### [facility] [address] [place], [address] Bilirubin [Mass/Vol] 0.40 mg/dL Normal 0.20-1.00 [facility] Comment on above: Order Comment: Order Date: 08/23/22 Order Info: [id number] - CMP Order Info: [id number] - LIPID Result Comment: For patients on eltrombopag therapy, use of Dimension [place] TBIL is not recommended. Performed By: #### L 500.4050, L500.4100 #### [facility] [address] [place], [address] BUN/CRE 25.4 RATIO High 10-20 [facility] Comment on above: Order Comment: Order Date: 08/23/22 Order Info: [id number] - CMP Order Info: [id number] - LIPID Performed By: #### L 500.4050, L500.4100 #### [facility] [address] [place], [address] CA,Total 8.8 mg/dL Normal 8.5-10.1 [facility] Comment on above: Order Comment: Order Date: 08/23/22 Order Info: [id number] - CMP Order Info: [id number] - LIPID Performed By: #### L 500.4050, L500.4100 #### [facility] [address] [place], [address] Chloride [Moles/Vol] 108 mmol/L High 98-107 [facility] Comment on above: Order Comment: Order Date: 08/23/22 Order Info: [id number] - CMP Order Info: [id number] - LIPID Performed By: #### L 500.4050, L500.4100 #### [facility] [address] [place], [address] CO2 [Moles/Vol] 24.0 mmol/L Normal 21.0-32.0 [facility] Comment on above: Order Comment: Order Date: 08/23/22 Order Info: [id number] - CMP Order Info: [id number] - LIPID Performed By: #### L 500.4050, L500.4100 #### [facility] [address] [place], [address] Creatinine [Mass/Vol] 0.83 mg/dL Normal 0.70-1.30 [facility] Comment on above: Order Comment: Order Date: 08/23/22 Order Info: [id number] - CMP Order Info: [id number] - LIPID Result Comment: The validity of the calculated GFR GFRAA in patients over 70 years has not been determined. Clinical correlation is essential. Performed By: #### L 500.4050, L500.4100 #### [facility] [address] [place], [place], [address] EST GFR - AA 129 mL/min Normal >60 [facility] Comment on above: Order Comment: Order Date: 08/23/22 Order Info: 07 - CMP Order Info: [id number] - LIPID Result Comment: Afri can Grenadian GFR Calc Performed By: #### L 500.4050, L500.4100 #### [facility] [address] [place], [address] GAP 3 Low 5-15 [facility] Comment on above: Order Comment: Order Date: 08/23/22 Order Info: [id number] - CMP Order Info: [id number] - LIPID Performed By: #### L 500.4050, L500.4100 #### [facility] [address] [place], [address] GFR/1.73 sq M.predicted among non-blacks MDRD (S/P/Bld) [Vol rate/Area] 106 mL/min/{1.73_m2} Normal >60 [facility] Comment on above: Order Comment: Order Date: 08/23/22 Order Info: [id number] - CMP Order Info: [id number] - LIPID Result Comment: Non- GFR Calc Performed By: #### L 500.4050, L500.4100 #### [facility] [address] [place], [address] Globulin (S) [Mass/Vol] 3.6 g/dL Normal 2.2-4.2 [facility] Comment on above: Order Comment: Order Date: 08/23/22 Order Info: [id number] - CMP Order Info: [id number] - LIPID Performed By: #### L 500.4050, L500.4100 #### [facility] [address] [place], [address] Glucose [Mass/Vol] 132 mg/dL High 74-106 [facility] Comment on above: Order Comment: Order Date: 08/23/22 Order Info: [id number] - CMP Order Info: [id number] - LIPID Result Comment: Fast ing Glucose result greater than or equal to 126 mg/dL suggests DIABETES MELLITUS per A.D.A. criteria. Performed By: #### L 500.4050, L500.4100 #### [facility] [address] [place], [address] Potassium [Moles/Vol] 4.2 mmol/L Normal 3.5-5.1 [facility] Comment on above: Order Comment: Order Date: 08/23/22 Order Info: [id number] - CMP Order Info: [id number] - LIPID Performed By: #### L 500.4050, L500.4100 #### [facility] [address] [place], [address] Sodium [Moles/Vol] 135 mmol/L Low 136-145 [facility] Comment on above: Order Comment: Order Date: 08/23/22 Order Info: [id number] - CMP Order Info: [id number] - LIPID Performed By: #### L 500.4050, L500.4100 #### [facility] [address] [place], [place], [address] T PROT 7.2 g/dL Normal 6.4-8.2 [facility] Comment on above: Order Comment: Order Date: 08/23/22 Order Info: [id number] - CMP Order Info: [id number] - LIPID Performed By: #### L 500.4050, L500.4100 #### [facility] [address] [place], [address] Urea nitrogen [Mass/Vol] 21 mg/dL High 7-18 [facility] Comment on above: Order Comment: Order Date: 08/23/22 Order Info: [id number] - CMP Order Info: [id number] - LIPID Performed By: #### L 500.4050, L500.4100 #### [facility] [address] [place], [address] High density lipoprotein (HD L) measurementOrdered By: Olu Begum on 08-07-2023 Cholesterol in HDL (Body fld) [Mass/Vol] 45 mg/dL >40 [facility] Comment on above: The drugs N-Acetylcy steine and Metamizole may falsely depress this assay. Reference Range HDL <40 mg/dL Low HDL Cholesterol HDL >or= 60 mg/dL High HDL Cholesterol Laboratory - Chemistry and C hemistry - challengeOrdered By: Olu Begum on 08-07-2023 Albumin/Globulin [Mass ratio] 1.0 {ratio} 0.9-2.4 [facility] ALP [Catalytic activity/Vol] 116 U/L 45-117 [facility] ALT [Catalytic activity/Vol] 21 U/L 16-61 [facility] CO2 [Moles/Vol] 24.0 mmol/L 21.0-32.0 [facility] Globulin (S) [Mass/Vol] 3.6 g/dL 2.2-4.2 [facility] Urea nitrogen/Creatinine [Mass ratio] 25.4 mg/mg 10-20 [facility] Lipid Profileon 08-07-2023 Cholesterol [Mass/Vol] 196 mg/dL Normal 200 [facility] Comment on above: Order Comment: Order Date: 08/23/22 Order Info: [id number] - CMP Order Info: [id number] - LIPID Result Comment: <200 mg/dL Desirable 200-240 mg/dL Borderline >240 mg/dL High Risk Performed By: #### L 500.4050, L500.4100 #### [facility] [address] [place], [address] Cholesterol in HDL [Mass/Vol] 45 mg/dL Normal [facility] Comment on above: Order Comment: Order Date: 08/23/22 Order Info: [id number] - CMP Order Info: [id number] - LIPID Result Comment: The drugs N-Acetylcysteine and Metamizole may falsely depress this assay. Reference Range HDL <40 mg/dL Low HDL Cholesterol HDL >or= 60 mg/dL High HDL Cholesterol Performed By: #### L 500.4050, L500.4100 #### [facility] [address] [place], [address] Cholesterol in LDL [Mass/Vol] 116 mg/dL Normal 0-130 [facility] Comment on above: Order Comment: Order Date: 08/23/22 Order Info: [id number] - CMP Order Info: [id number] - LIPID Performed By: #### L 500.4050, L500.4100 #### [facility] [address] [place], [address] Cholesterol in VLDL [Mass/Vol] 35 mg/dL Normal 5-40 [facility] Comment on above: Order Comment: Order Date: 08/23/22 Order Info: [id number] - CMP Order Info: [id number] - LIPID Performed By: #### L 500.4050, L500.4100 #### [facility] [address] [place], [address] Triglyceride [Mass/Vol] 174 mg/dL Normal [facility] Comment on above: Order Comment: Order Date: 08/23/22 Order Info: [id number] - CMP Order Info: [id number] - LIPID Result Comment: The drugs N-Acetylcysteine and Metamizole may falsely depress this assay. Serum Triglycerides Reference Interval Normal <150 mg/dL Borderline high 150 - 199 mg/dL High 200 - 499 mg/dL Very High > or = 500 mg/dL Performed By: #### L 500.4050, L500.4100 #### [facility] [address], [address] Low density lipoprotein (LDL ) cholesterol measurementOrdered By: Olu Begum on 08-07-2023 Cholesterol in LDL (Body fld) [Moles/Vol] 116 mg/dL 0-130 [facility] No Panel InformationOrdered By: Olu Begum on 08-07-2023 Estimated GFR (MDRD) Amer 129 mL/min >60 [facility] Comment on above: GFR Calc Estimated GFR (MDRD) Non-Af Amer 106 mL/min >60 [facility] Comment on above: Non- GFR Calc Serum or plasma calcium estefany urement (mass/volume)Ordered By: Olu Begum on 08-07-2023 Calcium [Mass/Vol] 8.8 mg/dL 8.5-10.1 [facility] Serum or plasma creatinine m easurement (mass/volume)Ordered By: Olu Begum on 08-07-2023 Creatinine [Mass/Vol] 0.83 mg/dL 0.70-1.30 [facility] Comment on above: The validity of the calculated GFR & GFRAA in patients over 70 years has not been determined. Clinical correlation is essential. Serum or plasma urea nitroge n measurement (mass/volume)Ordered By: Olu Begum on 08-07-2023 Urea nitrogen [Mass/Vol] 21 mg/dL 7-18 [facility] Thin prep Papanicolaou smear with manual screeningOrdered By: Olu Begum on 08-07-2023 Thin prep Papanicolaou smear with manual screening 3.6 g/dL 3.2-5.0 [facility] Thin prep Papanicolaou smear with manual screening 10 U/L 15-37 [facility] Thin prep Papanicolaou smear with manual screening 3 5-15 [facility] Very low density lipoprotein (VLDL) cholesterol measurementOrdered By: Olu Begum on 08-07-2023 Cholesterol in VLDL Calc [Moles/Vol] 35 mg/dL 5-40 [facility] CT ABD/PEL W/CONTRASTon 07-16 CT ABD/PEL W/CONTRAST CT ABDOMEN AND PEL VIS WITH IV AND ENTERIC CONTRAST Clinical Statement: Unspecified abdominal pain below left RIBS and left lower quadrant Comparison: None TECHNIQUE: Contiguous axial images were obtained through the abdomen and pelvis following the uneventful administration of 100 cc Isovue-300 and enteric contrast. FINDINGS: Images obtained through the lung bases demonstrate minimal subsegmental atelectasis within the lingula. There are many tiny scattered subcentimeter hypodensities throughout the liver, too small to accurately characterize but statistically small cysts or hemangiomas. There is no intrahepatic or extrahepatic biliary duct dilatation. The gallbladder is unremarkable. The spleen, pancreas and adrenal glands are unremarkable. The kidneys are symmetric in size and enhancement. A punctate nonobstructing calcification is present within the left kidney. There is no hydronephrosis. The ureters are normal in course and caliber. The urinary bladder is unremarkable. The prostate gland is not enlarged. The abdominal aorta is normal in course and caliber with scattered atherosclerotic calcifications. The stomach is unremarkable. Incidental note is made of a small duodenal diverticulum arising from the third portion measuring 1 cm. Small bowel is normal in course and caliber. The appendix is unremarkable but is noted to extend into the right inguinal canal. There are small bilateral fat-containing hernias. Diverticula are scattered throughout the distal colon. There is no intraperitoneal free air, focal fluid collection or pathologic adenopathy. Bilateral pars defects are incidentally noted at L5. There are no suspicious osseous lesions. IMPRESSION: 1. No acute abnormality or findings to explain the patient's symptoms. 2. Left nephrolithiasis without obstructive uropathy. 3. Diverticulosis. 4. Other incidental findings as detailed above. This report was electronically signed by Merissa Najera MD 08/05/2021 2:14 PM Reported By: MERISSA NAJERA M.D. Signed By: MERISSA NAJERA M.D. [facility] Encounters Encounter Date Encounter Type Care Provider Facility Start: 03-09-2024 End: 03-09-2024 Emergency department patient visit Francisco Sanchez Facility:[facility] Start: 11-27-2023 ambulatory Pérez Arriaga MD Work Phone: [facility] Start: 11-27-2023 Patient encounter procedure Pérez Arriaga MD Work Phone: [facility] Comment on above: office visit/colon d ue (Quality Team) Start: 08-07-2023 End: 08-07-2023 ambulatory [facility] Work Phone: Start: 08-07-2023 End: 08-07-2023 Patient encounter procedure [facility] Work Phone: Start: 08-07-2023 End: 08-07-2023 ambulatory Bradford Kel Facility:[facility] Procedures Date Procedure Procedure Detail Performing Clinician Start: 08-08-2020 Lipid 1996 panel - S satish or Plasma Pérez Arriaga MD Work Phone: Plan of Treatment Date Care Activity Detail Author Start: 08-15-2030 Urine microalbumin profile DTaP,Tdap,Td Vaccine (2 - Td or Tdap) [facility] Start: 08-08-2025 Lipid panel Lipid Screening [facility] Start: 03-15-2024 Influenza vaccination Influenz a Vaccine (Season Ended) [facility] Start: 08-15-2023 Diabetes Screening Diabetes Screenin g [facility] Start: 07-15-2023 Behavioral Health Screening Behavioral Health Screening [facility] Start: 03-15-2023 Covid-19 Vaccine ( season) Covid-19 Vaccine ( season) [facility] Start: 2022 Screening for malign ant neoplasm of colon [facility] Start: 10-07-2014 Pneumococcal vaccination Pneum ococcal Vaccine (2 of 2 - PCV) [facility] Start: 1996 Hepatitis B Vaccine (1 of 3 - 19+ 3-dose series) Hepatitis B Vaccine (1 of 3 - 19+ 3-dose series) [facility] Immunizations Immunization Date Immunization Notes Care Provider Ricky kim 08-15-2020 tetanus toxoid, reduced diphtheria toxoid, and acellular pertussis vaccine, adsorbed Pérez Arriaga MD Work Phone: [facility] 04-19-2013 tetanus and diphther ia toxoids, adsorbed, preservative free, for adult use (2 Lf of tetanus toxoid and 2 Lf of diphtheria toxoid) [facility] 03-20-2011 tetanus and diphther ia toxoids, not adsorbed, for adult use Pérez Arriaga MD Work Phone: [facility] Payers Date Payer Category Payer Unknown [id number] 2023 Self-pay [id number] 2023 Unknown [id number] 2019 Unknown MMO MMO [employer] PPO [id number] 2019-Present [phone] [address] [place] [address] PPO [id number] 2014 Unknown [facility] PLAN [id number] Unknown [id number] Unknown [id number] Social History Date Type Detail Facility [facility]: [facility] Start: 11-09-2013 Heavy [facility] Start: 11-09-2013 - [facility] Start: 10-07-2013 Alone [facility] Start: 1975 Sex Assigned At Male [facility] Start: 02-13-2021 [facility] History of tobacco use Cigarette Smoker [facility] Start: 06-20-2020 End: 02-13-2021 Cigarettes smoked current (pack per day) - Reported 0.5 [facility] Start: 02-13-2021 Tobacco use and exposure User of smokeless tobacco [facility] Start: 05-19-2021 Alcohol intake Ex-drinker (finding) [facility] Start: 06-20-2020 End: 05-18-2021 Social connection and isolation panel [facility] Do you belong to any clubs or organizations such as baptism groups, [employer], [employer] or athletic groups, or school groups? Yes [facility] Are you now , , , , never or living with a partner? [facility] How often to you hav e a drink containing alcohol? Never [facility] Average Number of Drinks Not on file [facility] How hard is it for y ou to pay for the very basics like food, housing, medical care, and heating Not very hard [facility] Do you feel stress - tense, restless, nervous, or anxious, or unable to sleep at night because your mind is troubled all the time - these days [OSQ] Only a little [facility] (I/We) worried cynthia er (my/our) food would run out before (I/we) got money to buy more. Never true [facility] In the past 12 month s, was there a time when you were not able to pay the mortgage or rent on time? No [facility] Start: 02-13-2021 Tobacco Comment chewing 2 cans per week [facility] Start: 08-14-2019 [facility] 1975 Sex Assigned At Not on file [facility] Clinical Note 11-27-2023 Note Date & Type Note Facility 11-27-2023 Note Patient Outreach (FA MPWS) DEANN TANNER ([id number]) 1975 M Date Time Provider Department 11/27/23 PÉREZ ARRIAGA During your visit today, we recorded the following information about you: Sita Anaya LPN 11/27/2023 10:53 AM Signed Spoke with pt and he is now seeing Dr. Peña. Sita Anaya LPN Allergies As of Date: 11/27/2023 (No Known Allergies) Date Reviewed: 05/19/2021 Reviewed by: Micah Benson ([place]) - Fully Assessed Reason for Visit: office visit/colon due (Quality Team) [Other] Prescriptions as of 11/27/2023 - naproxen (NAPROSYN) 500 mg tablet Take 1 tablet by mouth twice daily as needed for pain. Take with food. - simvastatin (ZOCOR) 20 mg tablet Take 1 tablet by mouth once daily. - metoprolol succinate ER (TOPROL XL) 50 mg 24 hr tablet Take 1 tablet by mouth once daily. - lisinopril (ZESTRIL, PRINIVIL) 20 mg tablet Take 1 tablet by mouth once daily. Meds Comments as of 12/20/2011: Pt reports he is taking no medications at this time Problem List As Of Date 11/27/2023 Noted Resolved Lower urinary tract symptoms (LUTS) [R39.9] 03/01/2016 Frequency [FCG4526] 03/01/2016 Urgency of urination [R39.15] 03/01/2016 Depression [F32.A] 08/14/2019 Tobacco use disorder [F17.200] Encounter Status:Closed by SITA ANAYA on 11/27/23 [facility] Progress note 11-27-2023 Note Date & Type Note Facility 11-27-2023 Note HNO ID: [id number] Author: SITA ANAYA LPN Service: ? Author Type: LICENSED NURSE Type: Progress Notes Filed: 11/27/2023 10:53 Note Text: Spoke with pt and he is now seeing Dr. Peña. Sita Anaya LPN [facility] History of Present illness Narrative 11-27-2023 Sita Anaya LPN - 11/27/2023 10:52 AM EDT Note Date & Type Note Facility 11-27-2023 History of Presen t illness Narrative Spoke with pt and he is now seeing Dr. Peña. Sita Anaya LPN documented in this encounter [facility] Evaluation note Note Date & Type Note Facility Evaluation note No assessment information availa [facility] Work Phone: Summary Purpose Family History No Family History Records Found Relationship Condition Age at Onset Recorded Date/T ana Unknown Family History?No pe rtinent history Unknown October 07, 2013 1:06am Family History?No pe rtinent history Unknown October 07, 2013 1:06am Family History?Unknown Unknown November 09, 2013 10:00am Advance Directives No Advanced Directives Records Found Advance Directive Response Recorded Date/ Time Advance Directives No November 09, 2 014 3:47am Living Will No December 31, 2015 5:02am Power of Ventilation Equipment Tender No December 30, 6 5:02am Chief Complaint and Reason for Visit Chief Complaint e orders Additional Source Comments (unrecognized sect ion and content) No Status Records FoundNo Status Records FoundNo Status Records Found INFORMATION SOURCE (unrecogn ized section and content) DATE CREATED AUTHOR 08/08/2021 [facility] [place] DATE CREATED AUTHOR AUTHOR'S ORGANIZ ATION 11/29/2023 [facility] DATE CREATED AUTHOR AUTHOR'S ORGANIZ ATION 04/03/2024 [facility] Care Teams (unrecognized sec tion and content) Team Status: Active Member Role Status Dates [facility] Family Provider Active Dr. Olu Begum MD Primary Care Provider Activ e Team Status: Inactive Member Role Status Dates Dr. Olu Begum MD Primary Care Provider, Attending Provider, Referring Provider Active [employer] Reception[employer] Relationship Specialty Start Date End Date Pérez Begum MD [address] [place] [address] PCP - General Family Medicine 11/27/23 Goals (unrecognized section and content) Goals may be documented in a n alternate section Source Comments (unrecognize d section and content) In the event this informatio n is protected by the Federal Confidentiality of Alcohol and Drug Abuse Patient Records regulations: The Federal rules restrict any use of the information to criminally investigate or prosecute any alcohol or drug abuse patient.[facility] Reason for Visit (unrecogniz ed section and content) Reason Onset Date Comments office visit/colon due (Quality Team) 11/27/2023 FOR RECORDS PERTAINING TO PATIENTS WHO ARE [...] BE BASED ON THE PRIMARY CLINICAL RECORDS. [employer] provides no warranty or guarantee of the accuracy or completeness of information in this document.
--- NOTE | 2025-07-01 21:49 | CM.ED ---
Social Work Reason for visit: Alexandria Blue SW met with patients family which included , wifes mother, wifes father, adopted son and patients sister. Wifes mother notified SW that patient and had also lost a son in the beginning of the year to suicide. Emotional support provided. Francoise Mcclure, BIRTH CERTIFICATE CLERK, PROSTHETIC LAB TECHNICIAN
--- NOTE | 2025-07-01 22:37 | EX.ED.DYSGE1 ---
HPI History of Present Illness Chief Complaint: Cardiac Arrest Informant: EMS Narrative Narrative: 49-year-old male presenting to the emergency room in cardiac arrest. EMS states that the patient was found down on the ground with an unknown amount of downtime. He apparently had gone to the back of his property was working in a shed. His found him down the ground and started CPR. He was noted to be in asystole upon EMS arrival. EMS notes core body temperature 70 degrees. No rigor mortis. Despite ACLS efforts by EMS he remained asystole they did improve his body temperature slightly. They tell me that family reported that he has not been feeling well over the past couple days. [id number] tells me that he and his lost one of their adult children to suicide. EMS on scene stated that they did not see anything to suggest suicide or trauma. PFSH PFS Home Medications ?Medication ?Instructions ?Recorded ?Last Taken ?Type metoprolol tartrate 50 mg tablet 50 mg PO DAILY 04/19/13 10/29/13 History simvastatin 20 mg tablet 20 mg PO QHS 04/19/13 10/29/13 History lisinopril 40 mg tablet 20 mg PO DAILY 10/20/13 10/29/13 History ibuprofen 600 mg tablet 600 mg PO DAILY 12/21/15 Unknown History cephalexin 500 mg capsule 500 mg PO TID 7 days #21 caps 03/09/24 Unknown Rx ketorolac 10 mg tablet 10 mg PO 4X/DAY PRN pain 5 days 03/09/24 Unknown Rx #20 tabs ondansetron 4 mg disintegrating 4 mg PO TID PRN nausea and 03/09/24 Unknown Rx tablet vomiting #21 tabs oxycodone-acetaminophen 5 mg-325 1 tab PO Q6H PRN pain 5 days #20 03/09/24 Unknown Rx mg tablet (Percocet) tabs tamsulosin 0.4 mg capsule (Flomax) 0.4 mg PO DAILY 14 days #14 caps 03/09/24 Unknown Rx Allergy/AdvReac Type Severity Reaction Status Date / Time No Known Allergies Allergy Verified 07/01/25 20:35 Surgical History History of ankle surgery History of tonsillectomy and adenoidectomy Social History Smoking Status: Current every day smoker tobacco type: cigarettes ROS ROS ED Review of Systems ROS Unobtainable: other Details: Due to cardiac arrest EXAM Physical Exam Const Vital Signs: 07/01/25 20:15 07/01/25 20:15 Temperature 95.0 F L Temperature Source Temporal Pulse Rate 0 L Respiratory Rate 0 L 0 L Blood Pressure 0/0 L 0/0 L Pulse Ox 0 0 Oxygen Flow Rate (L/min) 100 Positive well nourished and well developed General Appearance ED: well developed and pallor HEENT HEENT Narrative: There is a LMA in the airway. There is a small amount of red drainage from it. Eyes Eyes Narrative: Pupils are dilated and fixed Chest Wall Chest Narrative: Compressions being performed by Sandip device Resp Resp Narrative: Bagged respirations with rhonchorous lung sounds bilaterally Cardio Rate: other Other Details: Asystole no electrical activity no cardiac motion on ultrasound GI GI Narrative: Soft nondistended Extremity Extremity Narrative: Hands and feet are pale with no capillary refill. Extremities are cold Neuro Neuro Narrative: Unresponsive Skin Skin Narrative: I do not appreciate outward signs of trauma. There is a left humeral IO in place General Skin Exam: pallor MDM MDM MDM Narrative Medical decision making narrative: CPR was continued while we got the patient exposed. I do not see any outward signs of trauma. He remained in asystole with no cardiac motion and was pronounced at 2020 hrs. Family was updated with nursing present. History & Record Review Discussion w/independent historian: EMS personnel and Family Discharge Plan Triage Chief Complaint: Cardiac Arrest ED Provider: Diogenes Martel Dx/Rx/DC Orders Clinical Impression: Cardiac arrest Prescriptions: No Action simvastatin 20 MG tablet 20 mg PO QHS Patient Comments: PT NOT TAKING FOR PAST WEEK metoprolol tartrate 50 MG tablet 50 mg PO DAILY Patient Comments: PT NOT TAKING FOR THE PAST WEEK lisinopril 40 MG tablet 20 mg PO DAILY Patient Comments: PT NOT TAKING FOR PAST WEEK ibuprofen 600 MG tablet 600 mg PO DAILY ketorolac 10 mg tablet 10 mg PO 4X/DAY PRN (Reason: pain) 5 Days Qty: 20 0RF cephalexin 500 mg capsule 500 mg PO TID 7 Days Qty: 21 0RF ondansetron 4 mg tablet,disintegrating 4 mg PO TID PRN (Reason: nausea and vomiting) Qty: 21 0RF tamsulosin [Flomax] 0.4 mg capsule 0.4 mg PO DAILY 14 Days Qty: 14 0RF oxycodone-acetaminophen [Percocet] 5-325 mg tablet 1 tab PO Q6H PRN (Reason: pain) 5 Days Qty: 20 0RF Primary Care Provider: Quincy Begum Referrals: Quincy Begum MD [Primary Care Provider, Family Practice] Print Language: Nigerien Disposition Disposition:
[2025-07-02 00:22] VITALS: BP 0/0; PULSE 0; RESP 0; TEMP -17.7; TEMP 0; O2SAT 0
== END 2025-07-02 00:25 ==
PROVIDERS: Emergency Provider Emergency Medicine; PCP Family Medicine; Visit Provider Emergency Medicine
DX: I46.9 Cardiac arrest, cause unspecified (principal); F17.210 Nicotine dependence, cigarettes, uncomplicated
CPT/HCPCS: 99282; A4216